=== PATIENT | female | born 1985 | race Caucasian/White ===

== ENCOUNTER 2019-06-10 05:21 | Inpatient (IN) | payer OTHER ==
[2019-06-10] MEDS ORDERED: Citric Acid/Sodium Citrate Solution 30 ML Cup PO ONE (05:27)
[2019-06-10] MEDS ORDERED: Sodium Chloride 0.9% 2.5 ML Syringe FLUSH PRN (05:27)
[2019-06-10] MEDS ORDERED: Sodium Chloride 0.9% 10 ML SDV IV PRN (05:27)
[2019-06-10] MEDS ORDERED: Oxytocin/0.9 % Sodium Chloride 30 UNIT/500 ML BAG IV SCH (05:30)
[2019-06-10] MEDS: Lactated Ringers 1,000 ML IV SCH ×3 (05:57→07:52)
[2019-06-10] MEDS ORDERED: Propofol 200 MG/20 ML SDV ONE (06:55)
[2019-06-10] MEDS ORDERED: Morphine PF 10 MG/10 ML SDV ONE (06:55)
--- NOTE | 2019-06-10 07:21 | PCM.PREANE ---
Preanesthetic Assessment - Anesthesia/Transfusion/Family Hx Anesthesia History: Prior Anesthesia Without Reaction Family History of Anesthesia Reaction: No Transfusion History: No Prior Transfusion(s) Intubation History: Unknown - Review of Systems General: No Symptoms Pulmonary: No Symptoms Cardiovascular: No Symptoms Gastrointestinal: No Symptoms Neurological: No Symptoms Other: Reports: None - Physical Assessment Height: 5 ft 9.5 in Weight: 106.141 kg ASA Class: 2 Mental Status: Alert & Oriented x3 Airway Class: Mallampati = 1 Dentition: Reports: Normal Dentition Thyro-Mental Finger Breadths: 3 Mouth Opening Finger Breadths: 3 ROM/Head Extension: Full Lungs: Clear to Auscultation, Normal Respiratory Effort Cardiovascular: Regular Rate, Regular Rhythm - Lab Values: Laboratory Last Values WBC 11.12 K/uL (4.0-11.0) H 06/10/19 06:00 RBC 4.44 M/uL (4.30-5.90) 06/10/19 06:00 Hgb 12.1 g/dL (12.0-16.0) 06/10/19 06:00 Hct 38.4 % (36.0-46.0) 06/10/19 06:00 MCV 86.5 fL (80.0-98.0) 06/10/19 06:00 MCH 27.3 pg (27.0-32.0) 06/10/19 06:00 MCHC 31.5 g/dL (31.0-37.0) 06/10/19 06:00 RDW Std Deviation 43.8 fl (28.0-62.0) 06/10/19 06:00 RDW Coeff of Renata 14 % (11.0-15.0) 06/10/19 06:00 Plt Count 189 K/uL (150-400) 06/10/19 06:00 MPV 10.70 fL (7.40-12.00) 06/10/19 06:00 Nucleated RBC % 0.0 /100WBC 06/10/19 06:00 Nucleated RBCs # 0 K/uL 06/10/19 06:00 Blood Type O POSITIVE 06/10/19 05:50 Antibody Screen NEGATIVE 06/10/19 05:50 - Allergies Allergies/Adverse Reactions: Allergies Allergy/AdvReac Type Severity Reaction Status Date / Time No Known Allergies Allergy Verified 06/05/19 08:34 - Blood Blood Available: No - Acknowledgements Anesthesia Type Planned: Spinal (general anesthesia back-up plan) Pt an Appropriate Candidate for the Planned Anesthesia: Yes Alternatives and Risks of Anesthesia Discussed w Pt/Guardian: Yes Pt/Guardian Understands and Agrees with Anesthesia Plan: Yes PreAnesthesia Questionnaire HEENT History: Reports: Other (See Below) Other HEENT History: wears glasses Cardiovascular History: Reports: None Respiratory History: Reports: Asthma Gastrointestinal History: Reports: Other (See Below) Other Gastrointestinal History: heartburn during Genitourinary History: Reports: None [employer] History: Reports: Polycystic Ovaries, Musculoskeletal History: Reports: None Neurological History: Reports: Other (See Below) Other Neuro History: migraines in the past Psychiatric History: Reports: Anxiety, PTSD Endocrine/Metabolic History: Reports: None Hematologic History: Reports: None Immunologic History: Reports: None Oncologic (Cancer) History: Reports: None Dermatologic History: Reports: None - Infectious Disease History Infectious Disease History: Reports: Chicken Pox - Past Surgical History Head Surgeries/Procedures: Reports: None HEENT Surgical History: Reports: Tonsillectomy Cardiovascular Surgical History: Reports: None Respiratory Surgical History: Reports: None GI Surgical History: Reports: None Female Surgical History: Reports: Section Endocrine Surgical History: Reports: None Neurological Surgical History: Reports: None Musculoskeletal Surgical History: Reports: None Oncologic Surgical History: Reports: None Dermatological Surgical History: Reports: None - SUBSTANCE USE Smoking Status *Q: Former Smoker Tobacco Use Within Last Twelve Months: No Second Hand Smoke Exposure: No Recreational Drug Use History: No - HOME MEDS Home Medications: Home Meds Albuterol Sulfate [Albuterol Sulfate Hfa] 1 - 2 inhalation INH ASDIRECTED PRN [History] Calcium Carbonate [Tums] 1 tab.chew CHEW ASDIRECTED PRN 06/05/19 [History] Fluticasone Furoate [Arnuity Ellipta] 1 inhalation INH DAILY 06/05/19 [History] Pnv No.95/Ferrous Fum/Folic AC [ Vitamin Tablet] 1 tab PO DAILY [History] - CURRENT (IN HOUSE) MEDS Current Meds: Current Medications Lactated Ringer's (Ringers, Lactated) 1,000 mls @ 500 mls/hr IV BOLUS [facility] Last Admin: 06/10/19 07:01 Dose: 999 mls/hr Oxytocin/Sodium Chloride (Oxytocin 30 Unit/500 Ml-Ns) 30 unit in 500 mls @ 250 mls/hr IV TITRATE [facility] Sodium Chloride (Saline Flush) 10 ml FLUSH ASDIRECTED PRN PRN Reason: Keep Vein Open Sodium Chloride (Saline Flush) 2.5 ml FLUSH ASDIRECTED PRN PRN Reason: Keep Vein Open Sodium Chloride (Normal Saline) 10 ml IV ASDIRECTED PRN PRN Reason: IV Use Discontinued Medications Citric Acid/Sodium Citrate (Bicitra Solution) 30 ml PO ONETIME ONE Stop: 06/10/19 05:28 Clindamycin Phosphate 900 mg/ (Premix) 50 mls @ 100 mls/hr IV ASDIRECTED ONE Stop: 06/10/19 05:56 Morphine Sulfate (Duramorph Pf) Confirm Administered Dose 10 mg .ROUTE .STK-MED ONE Stop: 06/10/19 06:56 Propofol (Diprivan 20 Ml) Confirm Administered Dose 200 mg .ROUTE .STK-MED ONE Stop: 06/10/19 06:56
[2019-06-10] MEDS: Clindamycin Phosphate in D5W 900 MG in Premix Bag 1 BAG IV ONE ×4 (07:55→10:50)
[2019-06-10] MEDS ORDERED: ceFAZolin 1 GM Vial ONE (08:00)
[2019-06-10] MEDS ORDERED: Ondansetron 4 MG/2 ML SDV ONE (08:01)
[2019-06-10] MEDS ORDERED: Oxytocin 10 Units/1 ML SDV ONE ×3 (08:26→08:41)
[2019-06-10] MEDS ORDERED: ePHEDrine 50 MG/ML SDV ONE (08:43)
[2019-06-10] MEDS ORDERED: Tranexamic Acid 1,000 MG in Sodium Chloride 0.9% 100 ML IV PRN (09:12)
[2019-06-10] MEDS ORDERED: Ibuprofen 800 MG Tab PO PRN (09:12)
[2019-06-10] MEDS ORDERED: Ondansetron 4 MG/2 ML SDV IVPUSH PRN ×2 (09:12→09:28)
[2019-06-10] MEDS ORDERED: Lanolin 100% Cream 7 GM Tube TOP PRN (09:12)
[2019-06-10] MEDS ORDERED: Methylergonovine 0.2 MG/1 ML Amp IM PRN (09:12)
[2019-06-10] MEDS ORDERED: Aluminum Hydroxide/Magnesium Hydroxide/Simethicone Susp 30 ML Cup PO PRN (09:12)
[2019-06-10] MEDS ORDERED: diphenhydrAMINE 50 MG/ML SDV IVPUSH PRN ×2 (09:12→09:28)
[2019-06-10] MEDS ORDERED: Misoprostol 200 MCG Tab RECTAL PRN (09:12)
[2019-06-10] MEDS ORDERED: Bisacodyl 10 MG Supp RECTAL PRN (09:12)
[2019-06-10] MEDS ORDERED: Oxytocin 10 Units/1 ML SDV IM PRN (09:12)
[2019-06-10] MEDS ORDERED: Lactated Ringers 1,000 ML IV SCH (09:15)
--- NOTE | 2019-06-10 09:20 | PCM.OPNOTE ---
- General Post-Op/Procedure Note Date of Surgery/Procedure: 06/10/19 Operative Procedure(s): Repeat LTCS Findings: Viable female APGARs 8, 9 weight 3240 gm. Intact placenta with 3V cord Pre Op Diagnosis: 39 week IUP. Previous LTCS, desires repeat Post-Op Diagnosis: Same Anesthesia Technique: Spinal Primary Surgeon: Nicole Nam Fluid Replacement, Intraop: 1,200 EBL in mLs: 600 Complications: none known Condition: Stable Free Text/Narrative:: Dictation [id number]
[2019-06-10] MEDS ORDERED: Naloxone 0.4 MG/ML Syringe IVPUSH PRN (09:28)
[2019-06-10] MEDS ORDERED: Nalbuphine 10 MG/1 ML Vial IVPUSH PRN (09:28)
[2019-06-10] MEDS ORDERED: Acetaminophen/oxyCODONE 325-5 MG Tab PO PRN (09:28)
[2019-06-10] MEDS ORDERED: fentaNYL 100 MCG/2 ML SDV IVPUSH PRN (09:28)
[2019-06-10] MEDS: Ketorolac 30 MG/ML SDV IVPUSH SCH ×3 (09:54→21:36)
[2019-06-10] MEDS: Sodium Chloride 0.9% 10 ML Syringe FLUSH PRN (09:58)
--- NOTE | 2019-06-10 10:41 | PCM.POSTAN ---
POST ANESTHESIA ASSESSMENT - MENTAL STATUS Mental Status: Alert - RESPIRATORY Respiratory Status: Respiratory Rate WNL, Airway Patent, O2 Saturation Stable - CARDIOVASCULAR CV Status: Pulse Rate WNL, Blood Pressure Stable - GASTROINTESTINAL GI Status: No Symptoms - PAIN Pain Score: 0 - POST OP HYDRATION Hydration Status: Adequate & Stable
[2019-06-10] MEDS: Simethicone 80 MG Tab.Chew PO SCH ×2 (12:22→18:11)
--- NOTE | 2019-06-10 16:42 | OR ---
SURGEON: Nicole Nam M.D. DATE OF PROCEDURE: 06/10/2019 PREOPERATIVE DIAGNOSES: 1. A 39-week intrauterine . 2. Previous section, desires repeat. POSTOPERATIVE DIAGNOSES: 1. A 39-week intrauterine . 2. Previous section, desires repeat. PROCEDURE: Repeat low transverse section. PRIMARY SURGEON: Nicole Nam MD. ANESTHESIA: Spinal. ESTIMATED BLOOD LOSS: 600 mL. FLUIDS: 1200 mL of crystalloid in the OR. FINDINGS: Viable female. scores 8 at one minute and 9 at five minutes. Weight of 3240 g. Intact placenta, 3-vessel cord. DISPOSITION: Infant to nursery, mom in PACU, stable. PROCEDURE DETAILS: Priscilla is a 33-year-old, G2, P1, at 39 weeks' gestational age who presents this morning for scheduled repeat delivery. Risks of procedure have been discussed with proper consent obtained. The patient was taken to the operating room where she underwent spinal anesthetic, was placed in dorsal supine position with leftward tilt. SCDs to lower extremities. Eid to gravity. Was prepped and draped in the usual sterile fashion. After being prepped and draped in usual sterile fashion, a time-out was performed. Anesthesia was tested, found to be adequate. Previous Pfannenstiel scar was now excised. Subcutaneous tissue was incised down to the level of rectus fascia which was incised in midline. The superior aspect of fascia was tented upward and dissected sharply and bluntly away from underlying muscles. In a similar aspect, this was performed at the inferior aspect of the fascia. Rectus muscle was in midline. Peritoneum was entered. Rectus muscle and peritoneum were now lateralized bluntly. Uterine position and position palpated. Self-retaining retractor now gently placed. Uterovesical reflection was visualized. Bladder flap was created sharply and bluntly. Bladder was mobilized away from lower uterine segment. Low transverse hysterotomy was performed. Uterine cavity was entered with blunt end of the scalpel. Amniotomy was performed, clear fluid was returned. The infant's head was flexed, delivered from the pelvis. Fundal pressure was applied. The infant's head was delivered followed by anterior shoulder, posterior shoulder, and remainder of the body without difficulty. The infant's oropharynx and nares were bulb suctioned. The had good tone, crying vigorously. After a delay, cord was clamped x2 and cut. The infant was handed off to attending nursery staff. Cord arterial, cord venous, cord blood sampling was obtained. The placenta was now delivered. Uterine cavity was cleared of all clot and debris, did appear to have an arcuate shape. Hysterotomy was repaired using 0 Vicryl in continuous running locked fashion followed by re-imbricating layer. Any areas of oozing along the serosa were cauterized. The posterior aspect of the uterus inspected, no defects or hematomas found be forming. Region was well irrigated, suction dried. Colonic gutters were cleared of all clot and debris, well irrigated, suction dried. Hysterotomy was again inspected, found to be hemostatic. Self-retaining retractor now gently removed. Bladder blade was placed. Hysterotomy once again inspected, found to be hemostatic. Rectus muscle and peritoneum were now reapproximated using 0 Vicryl in inverted mattress suture technique. Anterior aspect of the muscle and posterior aspect of the fascia were closely inspected. Any areas of oozing were cauterized. The rectus fascia was reapproximated using 0 Vicryl in continuous running fashion, beginning laterally on each side and meeting in the midline. Subcutaneous tissue was copiously irrigated. Any areas of oozing were cauterized. Skin edges reapproximated using 3-0 Vicryl on a Ryland needle in subcuticular fashion followed by half-inch Steri-Strips and Mastisol. Uterus remained firm below the U. Sponge and needle count was correct x2. The patient tolerated the procedure well overall. She will go to PACU in stable condition, infant to nursery. VIVIAN / BRAXTON /[id number]
[2019-06-10] MEDS: Docusate Sodium 100 MG Cap PO SCH (21:36)
[2019-06-11] MEDS: Simethicone 80 MG Tab.Chew PO SCH ×4 (00:05→21:22)
[2019-06-11] MEDS: Ketorolac 30 MG/ML SDV IVPUSH SCH ×2 (03:16→09:56)
--- NOTE | 2019-06-11 08:49 | PCM.PNPP ---
- General Info Date of Service: 06/11/19 Functional Status: Reports: Pain Controlled, Tolerating Diet, Ambulating - Review of Systems General: Reports: Fatigue. Denies: Fever, Weakness Pulmonary: Denies: Shortness of Breath Cardiovascular: Denies: Chest Pain, Palpitations, Lightheadedness Gastrointestinal: Denies: Abdominal Pain, Nausea, Vomiting Genitourinary: Denies: Flank Pain Musculoskeletal: Reports: No Symptoms Skin: Reports: No Symptoms Neurological: Reports: No Symptoms Psychiatric: Reports: No Symptoms - General Info Date of Service: 06/11/19 - Patient Data Vital Signs - Most Recent: Last Vital Signs Temp 36.6 C 06/11/19 06:00 Pulse 86 06/11/19 07:57 Resp 16 06/11/19 07:57 BP 106/51 L 06/11/19 06:00 Pulse Ox 98 06/11/19 07:57 Weight - Most Recent: 106.141 kg I&O - Last 24 Hours: Intake & Output 06/10/19 06/11/19 06/11/19 22:59 06:59 14:59 Output Total 1025 2800 Balance -1025 -2800 Lab Results - Last 24 Hours: Laboratory Results - last 24 hr 06/10/19 06/11/19 Range/Units 08:34 05:37 Hgb 9.7 L (12.0-16.0) g/dL Hct 30.2 L (36.0-46.0) % Cord ABG pH 7.326 (7.18-7.38) Cord ABG Base Excess -3 (-10--2) Cord VBG pH 7.354 (7.25-7.45) Cord VBG Base Excess -3 (-10--2) Med Orders - Current: Current Medications Al Hydroxide/Mg Hydroxide (Mag-Al Plus) 30 ml PO Q8H PRN PRN Reason: Heartburn Bisacodyl (Dulcolax) 10 mg RECTAL ONETIME PRN PRN Reason: Constipation Diphenhydramine HCl (Benadryl) 25 mg IVPUSH Q6H PRN PRN Reason: Itching or Nausea Diphenhydramine HCl (Benadryl) 25 mg IVPUSH Q4H PRN PRN Reason: Itching Stop: 06/11/19 09:28 Docusate Sodium (Colace) 100 mg PO BID [facility] Last Admin: 06/10/19 21:36 Dose: 100 mg Emollient Ointment (Lansinoh Hpa) 0 gm TOP ASDIRECTED PRN PRN Reason: Sore Nipples Fentanyl (Sublimaze) 50 mcg IVPUSH Q1H PRN PRN Reason: Pain (severe 7-10) Lactated Ringer's (Ringers, Lactated) 1,000 mls @ 500 mls/hr IV BOLUS [facility] Last Admin: 06/10/19 07:52 Dose: 999 mls/hr Oxytocin/Sodium Chloride (Oxytocin 30 Unit/500 Ml-Ns) 30 unit in 500 mls @ 250 mls/hr IV TITRATE [facility] Tranexamic Acid 1,000 mg/ (Sodium Chloride) 110 mls @ 660 mls/hr IV ONETIME PRN PRN Reason: Bleeding Lactated Ringer's (Ringers, Lactated) 1,000 mls @ 125 mls/hr IV ASDIRECTED [facility] Last Admin: 06/10/19 10:42 Dose: 125 mls/hr Ibuprofen (Motrin) 800 mg PO Q8H PRN PRN Reason: mild pain or fever Ketorolac Tromethamine (Toradol) 30 mg IVPUSH Q6H [facility] Stop: 06/11/19 09:16 Last Admin: 06/11/19 03:16 Dose: 30 mg Methylergonovine Maleate (Methergine) 0.2 mg IM ONETIME PRN PRN Reason: Excessive Vaginal Bleeding Misoprostol (Cytotec) 1,000 mcg RECTAL ONETIME PRN PRN Reason: excessive bleeding Nalbuphine HCl (Nubain) 5 mg IVPUSH ASDIRECTED PRN PRN Reason: Itching Naloxone HCl (Narcan) 0.1 mg IVPUSH ONETIME PRN PRN Reason: Respiratory Depression Stop: 06/11/19 09:28 Ondansetron HCl (Zofran) 4 mg IVPUSH Q4H PRN PRN Reason: Nausea/Vomiting Last Admin: 06/10/19 15:45 Dose: 4 mg Ondansetron HCl (Zofran) 4 mg IVPUSH Q6H PRN PRN Reason: Nausea Oxycodone/Acetaminophen (Percocet 325-5 Mg) 1 tab PO Q4H PRN PRN Reason: Pain (moderate 4-6) Oxycodone/Acetaminophen (Percocet 325-5 Mg) 2 tab PO Q4H PRN PRN Reason: Pain (moderate 4-6) Oxycodone/Acetaminophen (Percocet 325-5 Mg) 2 tab PO Q6H PRN PRN Reason: Pain (moderate 4-6) Oxytocin (Pitocin) 10 unit IM ASDIRECTED PRN PRN Reason: Excessive Vaginal Bleeding Simethicone (Simethicone) 160 mg PO QID [facility] Last Admin: 06/11/19 05:55 Dose: 160 mg Sodium Chloride (Saline Flush) 10 ml FLUSH ASDIRECTED PRN PRN Reason: Keep Vein Open Last Admin: 06/10/19 09:58 Dose: 10 ml Sodium Chloride (Saline Flush) 2.5 ml FLUSH ASDIRECTED PRN PRN Reason: Keep Vein Open Sodium Chloride (Normal Saline) 10 ml IV ASDIRECTED PRN PRN Reason: IV Use Discontinued Medications Cefazolin Sodium (Ancef) Confirm Administered Dose 2 gm .ROUTE .STK-MED ONE Stop: 06/10/19 08:01 Citric Acid/Sodium Citrate (Bicitra Solution) 30 ml PO ONETIME ONE Stop: 06/10/19 05:28 Last Admin: 06/10/19 10:51 Dose: Not Given Ephedrine Sulfate (Ephedrine Sulfate) Confirm Administered Dose 50 mg .ROUTE .STK-MED ONE Stop: 06/10/19 08:44 Clindamycin Phosphate 900 mg/ (Premix) 50 mls @ 100 mls/hr IV ASDIRECTED ONE Stop: 06/10/19 05:56 Last Admin: 06/10/19 10:50 Dose: Not Given Morphine Sulfate (Duramorph Pf) Confirm Administered Dose 10 mg .ROUTE .STK-MED ONE Stop: 06/10/19 06:56 Ondansetron HCl (Zofran) Confirm Administered Dose 4 mg .ROUTE .STK-MED ONE Stop: 06/10/19 08:02 Oxytocin (Pitocin) Confirm Administered Dose 10 unit .ROUTE .STK-MED ONE Stop: 06/10/19 08:27 Oxytocin (Pitocin) Confirm Administered Dose 10 unit .ROUTE .STK-MED ONE Stop: 06/10/19 08:27 Oxytocin (Pitocin) Confirm Administered Dose 20 unit .ROUTE .STK-MED ONE Stop: 06/10/19 08:42 Propofol (Diprivan 20 Ml) Confirm Administered Dose 200 mg .ROUTE .STK-MED ONE Stop: 06/10/19 06:56 - Infant Interaction Support Person: - Recovery Exam Fundal Tone: Firm Fundal Level: 1 Fingerbreadths Below Umbilicus Fundal Placement: Midline Lochia Amount: Scant Lochia Color: Rubra/Red Perineum Description: Intact, Minimal Bruising/Swelling Episiotomy/Laceration: None Bladder Status: Nonpalpable Urinary Elimination: Not Voiding - Exam General: Alert, Oriented Lungs: Normal Respiratory Effort Cardiovascular: Regular Rate, Regular Rhythm GI/Abdominal Exam: Normal Bowel Sounds, Soft Extremities: Pedal Edema (trace). No: Edith's Sign Skin: Warm, Dry, Intact Wound/Incisions: Healing Well, Dressing Dry and Intact Neurological: No New Focal Deficit - Problem List & Annotations (1) Status post repeat low transverse section SNOMED Code(s): 197667650, 18754598, 562698192, 941245113, 231867296 Code(s): Z98.891 - HISTORY OF UTERINE SCAR FROM PREVIOUS SURGERY Status: Acute Current Visit: Yes - Problem List Review Problem List Initiated/Reviewed/Updated: Yes - My Orders Last 24 Hours: My Active Orders 06/10/19 09:12 Patient Status [ADT] Routine Ambulate [RC] PER UNIT ROUTINE Antiembolic Devices [RC] PER UNIT ROUTINE Communication Order [RC] PER UNIT ROUTINE Communication Order [RC] PER UNIT ROUTINE Communication Order [RC] Per Unit Routine May Shower [RC] ASDIRECTED Notify Provider Intake and Out [RC] ASDIRECTED Notify Provider Vital Signs [RC] ASDIRECTED RT Incentive Spirometry [RC] Q2HWA Acetaminophen/oxyCODONE [Percocet 325-5 MG] 1 tab PO Q4H PRN Acetaminophen/oxyCODONE [Percocet 325-5 MG] 2 tab PO Q4H PRN Alum Hydrox/Mag Hydrox/Simeth [Mag-Al Plus] 30 ml PO Q8H PRN Ibuprofen [Motrin] 800 mg PO Q8H PRN Lanolin [Lansinoh HPA] See Dose Instructions TOP ASDIRECTED PRN Methylergonovine [Methergine] 0.2 mg IM ONETIME PRN Ondansetron [Zofran] 4 mg IVPUSH Q4H PRN Oxytocin [Pitocin] 10 unit IM ASDIRECTED PRN Tranexamic Acid [Cyklokapron] 1,000 mg Sodium Chloride 0.9% [Normal Saline] 100 ml IV ONETIME bisacodyL [Dulcolax] 10 mg RECTAL ONETIME PRN diphenhydrAMINE [Benadryl] 25 mg IVPUSH Q6H PRN miSOPROStoL [Cytotec] 1,000 mcg RECTAL ONETIME PRN Abdominal Binder [OM.PC] Routine Assess Lochia [WOMSER] Per Unit Routine Assess Uterine Involution [WOMSER] Per Unit Routine Breast Pump [WOMSER] Per Unit Routine Heat Therapy [OM.PC] Routine Ice Therapy [OM.PC] Routine Peripheral IV Discontinue [OM.PC] Routine Sequential Compression Device [OM.PC] Per Unit Routine 06/10/19 09:13 Cooling Warming Measures [RC] ASDIRECTED 06/10/19 09:15 Ketorolac [Toradol] 30 mg IVPUSH Q6H Lactated Ringers [Ringers, Lactated] 1,000 ml IV ASDIRECTED 06/10/19 12:00 Simethicone 160 mg PO QID 06/10/19 21:00 Docusate Sodium [Colace] 100 mg PO BID 06/10/19 Lunch Regular Diet [DIET] - Assessment Assessment:: POD 1 status post repeat LTCS - Plan Plan:: Continue postoperative cares, ambulate halls today and may shower. VS are reassuring, labs reviewed.
[2019-06-11] MEDS: Docusate Sodium 100 MG Cap PO SCH ×2 (09:55→20:53)
[2019-06-11] MEDS: Sodium Chloride 0.9% 10 ML Syringe FLUSH PRN (09:57)
[2019-06-11] MEDS ORDERED: Albuterol/Ipratropium 3.0-0.5 MG/3 ML Neb Soln NEB ONE (17:35)
[2019-06-11] MEDS: Acetaminophen/oxyCODONE 325-5 MG Tab PO PRN (20:52)
[2019-06-12] MEDS: Acetaminophen/oxyCODONE 325-5 MG Tab PO PRN ×3 (03:15→11:15)
--- NOTE | 2019-06-12 08:32 | PCM.PNPP ---
- General Info Date of Service: 06/12/19 Functional Status: Reports: Pain Controlled, Tolerating Diet, Ambulating, Urinating - Review of Systems General: Denies: Fever, Weakness, Fatigue Pulmonary: Denies: Shortness of Breath Cardiovascular: Denies: Chest Pain, Palpitations, Lightheadedness Gastrointestinal: Denies: Abdominal Pain, Nausea, Vomiting Genitourinary: Denies: Flank Pain Musculoskeletal: Reports: No Symptoms Skin: Reports: No Symptoms Neurological: Reports: No Symptoms Psychiatric: Reports: No Symptoms - General Info Date of Service: 06/12/19 - Patient Data Vital Signs - Most Recent: Last Vital Signs Temp 36.4 C 06/12/19 07:15 Pulse 82 06/12/19 07:15 Resp 18 06/12/19 07:15 BP 132/75 06/12/19 07:15 Pulse Ox 97 06/12/19 07:15 Weight - Most Recent: 106.141 kg Med Orders - Current: Current Medications Al Hydroxide/Mg Hydroxide (Mag-Al Plus) 30 ml PO Q8H PRN PRN Reason: Heartburn Bisacodyl (Dulcolax) 10 mg RECTAL ONETIME PRN PRN Reason: Constipation Diphenhydramine HCl (Benadryl) 25 mg IVPUSH Q6H PRN PRN Reason: Itching or Nausea Docusate Sodium (Colace) 100 mg PO BID [facility] Last Admin: 06/11/19 20:53 Dose: 100 mg Emollient Ointment (Lansinoh Hpa) 0 gm TOP ASDIRECTED PRN PRN Reason: Sore Nipples Fentanyl (Sublimaze) 50 mcg IVPUSH Q1H PRN PRN Reason: Pain (severe 7-10) Lactated Ringer's (Ringers, Lactated) 1,000 mls @ 500 mls/hr IV BOLUS [facility] Last Admin: 06/10/19 07:52 Dose: 999 mls/hr Oxytocin/Sodium Chloride (Oxytocin 30 Unit/500 Ml-Ns) 30 unit in 500 mls @ 250 mls/hr IV TITRATE [facility] Tranexamic Acid 1,000 mg/ (Sodium Chloride) 110 mls @ 660 mls/hr IV ONETIME PRN PRN Reason: Bleeding Lactated Ringer's (Ringers, Lactated) 1,000 mls @ 125 mls/hr IV ASDIRECTED [facility] Last Admin: 06/10/19 10:42 Dose: 125 mls/hr Ibuprofen (Motrin) 800 mg PO Q8H PRN PRN Reason: mild pain or fever Last Admin: 06/11/19 16:22 Dose: 800 mg Methylergonovine Maleate (Methergine) 0.2 mg IM ONETIME PRN PRN Reason: Excessive Vaginal Bleeding Misoprostol (Cytotec) 1,000 mcg RECTAL ONETIME PRN PRN Reason: excessive bleeding Nalbuphine HCl (Nubain) 5 mg IVPUSH ASDIRECTED PRN PRN Reason: Itching Ondansetron HCl (Zofran) 4 mg IVPUSH Q4H PRN PRN Reason: Nausea/Vomiting Last Admin: 06/10/19 15:45 Dose: 4 mg Ondansetron HCl (Zofran) 4 mg IVPUSH Q6H PRN PRN Reason: Nausea Oxycodone/Acetaminophen (Percocet 325-5 Mg) 1 tab PO Q4H PRN PRN Reason: Pain (moderate 4-6) Last Admin: 06/12/19 03:15 Dose: 1 tab Oxycodone/Acetaminophen (Percocet 325-5 Mg) 2 tab PO Q4H PRN PRN Reason: Pain (moderate 4-6) Last Admin: 06/12/19 07:19 Dose: 2 tab Oxycodone/Acetaminophen (Percocet 325-5 Mg) 2 tab PO Q6H PRN PRN Reason: Pain (moderate 4-6) Oxytocin (Pitocin) 10 unit IM ASDIRECTED PRN PRN Reason: Excessive Vaginal Bleeding Simethicone (Simethicone) 160 mg PO QID [facility] Last Admin: 06/11/19 21:22 Dose: Not Given Sodium Chloride (Saline Flush) 10 ml FLUSH ASDIRECTED PRN PRN Reason: Keep Vein Open Last Admin: 06/11/19 09:57 Dose: 10 ml Sodium Chloride (Saline Flush) 2.5 ml FLUSH ASDIRECTED PRN PRN Reason: Keep Vein Open Sodium Chloride (Normal Saline) 10 ml IV ASDIRECTED PRN PRN Reason: IV Use Discontinued Medications Albuterol/Ipratropium (Duoneb 3.0-0.5 Mg/3 Ml) 3 ml NEB ONETIME ONE Stop: 06/11/19 17:36 Last Admin: 06/11/19 17:49 Dose: 3 ml Cefazolin Sodium (Ancef) Confirm Administered Dose 2 gm .ROUTE .STK-MED ONE Stop: 06/10/19 08:01 Citric Acid/Sodium Citrate (Bicitra Solution) 30 ml PO ONETIME ONE Stop: 06/10/19 05:28 Last Admin: 06/10/19 10:51 Dose: Not Given Diphenhydramine HCl (Benadryl) 25 mg IVPUSH Q4H PRN PRN Reason: Itching Stop: 06/11/19 09:28 Ephedrine Sulfate (Ephedrine Sulfate) Confirm Administered Dose 50 mg .ROUTE .STK-MED ONE Stop: 06/10/19 08:44 Clindamycin Phosphate 900 mg/ (Premix) 50 mls @ 100 mls/hr IV ASDIRECTED ONE Stop: 06/10/19 05:56 Last Admin: 06/10/19 10:50 Dose: Not Given Ketorolac Tromethamine (Toradol) 30 mg IVPUSH Q6H [facility] Stop: 06/11/19 09:16 Last Admin: 06/11/19 09:56 Dose: 30 mg Morphine Sulfate (Duramorph Pf) Confirm Administered Dose 10 mg .ROUTE .STK-MED ONE Stop: 06/10/19 06:56 Naloxone HCl (Narcan) 0.1 mg IVPUSH ONETIME PRN PRN Reason: Respiratory Depression Stop: 06/11/19 09:28 Ondansetron HCl (Zofran) Confirm Administered Dose 4 mg .ROUTE .STK-MED ONE Stop: 06/10/19 08:02 Oxytocin (Pitocin) Confirm Administered Dose 10 unit .ROUTE .STK-MED ONE Stop: 06/10/19 08:27 Oxytocin (Pitocin) Confirm Administered Dose 10 unit .ROUTE .STK-MED ONE Stop: 06/10/19 08:27 Oxytocin (Pitocin) Confirm Administered Dose 20 unit .ROUTE .STK-MED ONE Stop: 06/10/19 08:42 Propofol (Diprivan 20 Ml) Confirm Administered Dose 200 mg .ROUTE .STK-MED ONE Stop: 06/10/19 06:56 - Infant Interaction Support Person: - Recovery Exam Fundal Tone: Firm Fundal Level: At Umbilicus Fundal Placement: Midline Lochia Amount: Scant Lochia Color: Rubra/Red Perineum Description: Intact, Minimal Bruising/Swelling Episiotomy/Laceration: None Bladder Status: Voiding Urinary Elimination: Voided - Exam General: Alert, Oriented Lungs: Clear to Auscultation, Normal Respiratory Effort Cardiovascular: Regular Rate, Regular Rhythm GI/Abdominal Exam: Normal Bowel Sounds, Soft Extremities: Pedal Edema (trace). No: Edith's Sign Skin: Warm, Dry, Intact Wound/Incisions: Healing Well, No Drainage. No: Erythema Neurological: No New Focal Deficit Psy/Mental Status: Alert, Normal Affect, Normal Mood - Problem List & Annotations (1) Status post repeat low transverse section SNOMED Code(s): 324362183, 91042225, 774700151, 830567053, 479726679 Code(s): Z98.891 - HISTORY OF UTERINE SCAR FROM PREVIOUS SURGERY Status: Acute Current Visit: Yes - Problem List Review Problem List Initiated/Reviewed/Updated: Yes - My Orders Last 24 Hours: My Active Orders 06/11/19 17:18 Consult to Respiratory Therapy [Respiratory Care Assess and Treatment] [CONS] Routine 06/11/19 17:35 RT Aerosol Therapy [RC] ASDIRECTED 06/12/19 08:29 Ready for Discharge [RC] PER UNIT ROUTINE - Assessment Assessment:: POD 2 status post repeat LTCS - Plan Plan:: Patient doing well overall. Alllow discharge to home today as long as baby discharged. Follow up at [facility] 2 and 6 weeks. Disharge instructions reviewed. Had a duoneb treatment last night and feels this helped her move air more easily. She has her inhaler. Advised mucinex as well. Advised continued use of IS.
[2019-06-12] MEDS: Docusate Sodium 100 MG Cap PO SCH (09:04)
== END 2019-06-12 11:45 | disposition home or self-care (01) | DRG 788 ==
LOC: MW.OB 05:21
PROVIDERS: ADMIT Obstetrics & Gynecology; ATTEND Obstetrics & Gynecology
PROC: 10D00Z1 Extraction of Products of Conception, Low, Open Approach (ICD-10-PCS; principal; 2019-06-10)
DX: O34.211 Maternal care for low transverse scar from previous cesarean delivery (principal); J45.909 Unspecified asthma, uncomplicated; O99.52 Diseases of the respiratory system complicating childbirth; Z79.899 Other long term (current) drug therapy; Z87.891 Personal history of nicotine dependence; Z90.89 Acquired absence of other organs; Z3A.39 39 weeks gestation of pregnancy; Z79.51 Long term (current) use of inhaled steroids; Z37.0 Single live birth
CPT/HCPCS: 36415; 51702; 59025; 82803; 85014; 85018; 85027; 86592; 86593; 86850; 86900; 86901; 94640; A9270-GY; J0690; J1885; J2270; J2405; J2590; J2704; J3490; J7120; J7620-GY

== ENCOUNTER 2019-06-14 21:11 | Emergency (ER) | payer OTHER ==
--- NOTE | 2019-06-14 21:18 | EDM.PDOC ---
ED HPI GENERAL MEDICAL PROBLEM - General Chief Complaint: Respiratory Problem Stated Complaint: POSSIBLE BRONCITUS Time Seen by Provider: 06/14/19 21:13 Source of Information: Reports: Patient History Limitations: Reports: No Limitations - History of Present Illness INITIAL COMMENTS - FREE TEXT/NARRATIVE: HISTORY AND PHYSICAL: History of present illness: Patient is a 33-year-old female who presents to the emergency room with complaints of cough and fever that started this evening. Patient is 4 days post , stating she had a normal delivery. 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 He had no complications or risks (denies any history of preeclampsia, DM, etc...). She states that tonight she had a fever of 101, she did take Tylenol prior to arrival. She is wanting to be evaluated for influenza and be treated if necessary. Concerned as she has a at home. History of asthma; states she has had a cough for about 1 week. States she received breathing treatments while in the before. She states this did help, she does not have nebulizer machine at home. Patient denies any headache, change in vision, syncope or near syncope. Denies any chest pain, back pain, shortness of breath or cough. Denies any abdominal pain, nausea, vomiting, diarrhea, constipation or dysuria. Has not noted any blood in urine or stool. Patient has been eating and drinking appropriately. Review of systems: As per history of present illness and below otherwise all systems reviewed and negative. Past medical history: As per history of present illness and as reviewed below otherwise noncontributory. Surgical history: As per history of present illness and as reviewed below otherwise noncontributory. Social history: See social history for further information Family history: As per history of present illness and as reviewed below otherwise noncontributory. Physical exam: General: Well-developed and well-nourished 33-year-old female. Alert and oriented. Nontoxic-appearing and in no acute distress. HEENT: Atraumatic, normocephalic, pupils equal and reactive bilaterally, negative for conjunctival pallor or scleral icterus, mucous membranes moist, TMs normal bilaterally, throat clear, neck supple, nontender, trachea midline. No drooling or trismus noted. No meningeal signs. No hot potato voice noted. Lungs: Faint expiratory wheezing noted to bilateral bases, breath sounds equal bilaterally, chest nontender. Heart: S1S2, regular rate and rhythm without overt murmur Abdomen: Soft, nondistended, nontender. Negative for masses or hepatosplenomegaly. Negative for costovertebral tenderness. Skin: Pfannenstiel incision noted without any fluctuance, erythema or wound dehiscence. Intact, warm, dry. No lesions or rashes noted. Extremities: Atraumatic, moves all extremities per self without difficulty or deficits, negative for cords or calf pain. Neurovascular unremarkable. Neuro: Awake, alert, oriented. Cranial nerves II through XII unremarkable. Cerebellum unremarkable. Motor and sensory unremarkable throughout. Exam nonfocal. Notes: Patient states that she did leave fairly abruptly to come to the emergency room for evaluation and does only want an influenza screening done at this time. We discussed lab work and chest x-ray which she declines. Patient's vital signs are stable. She denies any chest pain. Any lower extremity swelling/edema. We discussed postoperative risks and reviewed signs and symptoms that would prompt her to return to the emergency room. She does have a follow-up appointment with Dr. Nam next week. Supportive care measures were reviewed and discussed. Voices understanding and is agreeable to plan of care. Denies any further questions or concerns at this time. Diagnostics: Influenza Therapeutics: Duo Neb Prescription: Duo Neb Impression: Bronchitis Asthma exacerbation Plan: 1. Please use Tylenol and/or Ibuprofen as needed for pain and fever management. 2. Get plenty of Rest. Encourage fluids to prevent dehydration. 3. You can continue to use your home inhalers. Neb treatments every 4 hours as needed. 4. Please follow up with your primary care provider and/or OBGYN. Return to the ED as needed as discussed. Definitive disposition and diagnosis as appropriate pending reevaluation and review of above. - Related Data Allergies Allergy/AdvReac Type Severity Reaction Status Date / Time bupropion [From Wellbutrin] Allergy Rash Verified 06/14/19 21:48 cefaclor [From Ceclor] Allergy Rash Verified 06/14/19 21:48 Sulfa (Sulfonamide Allergy Rash Verified 06/14/19 21:48 Antibiotics) Home Meds: Home Meds Albuterol Sulfate [Albuterol Sulfate Hfa] 1 - 2 inhalation INH ASDIRECTED PRN [History] Calcium Carbonate [Tums] 1 tab.chew CHEW ASDIRECTED PRN 06/05/19 [History] Fluticasone Furoate [Arnuity Ellipta] 1 inhalation INH DAILY 06/05/19 [History] Pnv No.95/Ferrous Fum/Folic AC [ Vitamin Tablet] 1 tab PO DAILY [History] Past Medical History HEENT History: Reports: Other (See Below) Other HEENT History: wears glasses Cardiovascular History: Reports: None Respiratory History: Reports: Asthma Gastrointestinal History: Reports: Other (See Below) Other Gastrointestinal History: heartburn during Genitourinary History: Reports: None [employer] W[employer] CHIEF History: Reports: Polycystic Ovaries, Musculoskeletal History: Reports: None Neurological History: Reports: Other (See Below) Other Neuro History: migraines in the past Psychiatric History: Reports: Anxiety, PTSD Endocrine/Metabolic History: Reports: None Hematologic History: Reports: None Immunologic History: Reports: None Oncologic (Cancer) History: Reports: None Dermatologic History: Reports: None - Infectious Disease History Infectious Disease History: Reports: Chicken Pox - Past Surgical History Head Surgeries/Procedures: Reports: None HEENT Surgical History: Reports: Tonsillectomy Cardiovascular Surgical History: Reports: None Respiratory Surgical History: Reports: None GI Surgical History: Reports: None Female Surgical History: Reports: Section Endocrine Surgical History: Reports: None Neurological Surgical History: Reports: None Musculoskeletal Surgical History: Reports: None Oncologic Surgical History: Reports: None Dermatological Surgical History: Reports: None Social & Family History - Family History Family Medical History: Noncontributory - Caffeine Use Caffeine Use: Reports: None ED ROS GENERAL - Review of Systems Review Of Systems: Comprehensive ROS is negative, except as noted in HPI. ED EXAM, GENERAL - Physical Exam Exam: See Below (See dictation) Course - Vital Signs Last Recorded V/S: Last Vital Signs Temp 98.5 F 06/14/19 21:44 Pulse 100 06/14/19 21:44 Resp 18 06/14/19 21:44 BP 131/84 06/14/19 21:44 Pulse Ox 98 06/14/19 21:44 - Orders/Labs/Meds Orders: Active Orders 24 hr Category Date Time Status RT Aerosol Therapy [RC] ASDIRECTED Care 06/14/19 21:39 Active Isolation [COMM] Routine Oth 06/14/19 21:27 Active Meds: Medications Discontinued Medications Generic Name Dose Route Start Last Admin Trade Name Aurora PRN Reason Stop Dose Admin Albuterol/Ipratropium 3 ml 06/14/19 21:39 06/14/19 21:50 Duoneb 3.0-0.5 Mg/3 Ml NEB 06/14/19 21:40 3 ml ONETIME ONE Administration Departure - Departure Time of Disposition: 21:48 Disposition: Home, Self-Care 01 Clinical Impression: Bronchitis Asthma exacerbation Qualifiers: Asthma severity: mild Asthma persistence: intermittent Qualified Code(s): J45.21 - Mild intermittent asthma with (acute) exacerbation - Discharge Information Instructions: Upper Respiratory Infection, Adult, [id number] Referrals: Naren Vazquez MD [Primary Care Provider] - Forms: ED Department Discharge Additional Instructions: The following information is given to patients seen in the emergency department who are being discharged to home. This information is to outline your options for follow-up care. We provide all patients seen in our emergency department with a follow-up referral. The need for follow-up, as well as the timing and circumstances, are variable depending upon the specifics of your emergency department visit. If you don't have a primary care physician on staff, we will provide you with a referral. We always advise you to contact your personal physician following an emergency department visit to inform them of the circumstance of the visit and for follow-up with them and/or the need for any referrals to a consulting specialist. The emergency department will also refer you to a specialist when appropriate. This referral assures that you have the opportunity for follow-up care with a specialist. All of these measure are taken in an effort to provide you with optimal care, which includes your follow-up. Under all circumstances we always encourage you to contact your private physician who remains a resource for coordinating your care. When calling for follow-up care, please make the office aware that this follow-up is from your recent emergency room visit. If for any reason you are refused follow-up, please contact the [facility] Emergency Department at and asked to speak to the emergency department charge nurse. [facility] [address] [place] [id number] [facility] [address] [place] [address] 1. Please use Tylenol and/or Ibuprofen as needed for pain and fever management. 2. Get plenty of Rest. Encourage fluids to prevent dehydration. 3. You can continue to use your home inhalers. Neb treatments every 4 hours as needed. 4. Please follow up with your primary care provider and/or OBGYN. Return to the ED as needed as discussed. Sepsis Event Note - Focused Exam Vital Signs: Vital Signs Temp Pulse Resp BP Pulse Ox 06/14/19 21:44 98.5 F 100 18 131/84 98 Date Exam was Performed: 06/14/19 Time Exam was Performed: 21:54 - My Orders Last 24 Hours: My Active Orders 06/14/19 21:27 Isolation [COMM] Routine 06/14/19 21:39 RT Aerosol Therapy [RC] ASDIRECTED - Assessment/Plan Last 24 Hours: My Active Orders 06/14/19 21:27 Isolation [COMM] Routine 06/14/19 21:39 RT Aerosol Therapy [RC] ASDIRECTED
[2019-06-14] MEDS ORDERED: Albuterol/Ipratropium 3.0-0.5 MG/3 ML Neb Soln NEB ONE (21:39)
== END 2019-06-14 22:09 | disposition home or self-care (01) ==
LOC: MW.ED 21:11
DX: J45.21 Mild intermittent asthma with (acute) exacerbation (principal); Z88.1 Allergy status to other antibiotic agents; Z88.2 Allergy status to sulfonamides; Z88.8 Allergy status to other drugs, medicaments and biological substances
CPT/HCPCS: 87804; 99283; 99283-25; J7620-GY

== ENCOUNTER 2020-05-05 17:55 | Emergency (ER) | payer OTHER ==
--- NOTE | 2020-05-05 19:03 | EDM.PDOC ---
ED HPI GENERAL MEDICAL PROBLEM - General Chief Complaint: Respiratory Problem Stated Complaint: COVID POSITIVE Time Seen by Provider: 05/05/20 18:08 Source of Information: Reports: Patient History Limitations: Reports: No Limitations - History of Present Illness INITIAL COMMENTS - FREE TEXT/NARRATIVE: Patient presents requesting a chest x-ray. She states that she is on day 8 of a Covid diagnosis. She had minimal symptoms at the beginning and has had none in the last few days including: No shortness of breath, sore throat, headache, diarrhea, body aches. She has been eating and drinking well. Today, she developed a cough and "junky lungs". She went into the walk-in clinic today. They told her she needed a chest x-ray. She is lamas healthy without chronic medical problems. She has an [id number] at home. She is late on her menstrual cycle. - Related Data Allergies Allergy/AdvReac Type Severity Reaction Status Date / Time bupropion [From Wellbutrin] Allergy Rash Verified 05/05/20 18:10 cefaclor [From Ceclor] Allergy Rash Verified 05/05/20 18:10 Sulfa (Sulfonamide Allergy Rash Verified 05/05/20 18:10 Antibiotics) Home Meds: Home Meds Albuterol Sulfate [Albuterol Sulfate Hfa] 1 - 2 inhalation INH ASDIRECTED PRN 06/05/19 [History] Calcium Carbonate [Tums] 1 tab.chew CHEW ASDIRECTED PRN 06/05/19 [History] Budesonide [Pulmicort Flexhaler] 1 dose INH ASDIRECTED 05/05/20 [History] Codeine Phosphate/Guaifenesin [Guaifen-Codeine 100-10 mg/5 ml] 10 ml PO Q6HR PRN #240 liquid 05/05/20 [Rx] Montelukast [Singulair] 10 mg PO DAILY 05/05/20 [History] predniSONE [Prednisone] 2 tab PO DAILY #10 tablet 05/05/20 [Rx] Past Medical History HEENT History: Reports: Other (See Below) Other HEENT History: wears glasses Cardiovascular History: Reports: None Respiratory History: Reports: Asthma, Pneumonia, Recurrent Gastrointestinal History: Reports: Other (See Below) Other Gastrointestinal History: heartburn during Genitourinary History: Reports: None 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: Polycystic 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, Musculoskeletal History: Reports: None Neurological History: Reports: Other (See Below) Other Neuro History: migraines in the past Psychiatric History: Reports: Anxiety, PTSD Endocrine/Metabolic History: Reports: None Hematologic History: Reports: None Immunologic History: Reports: None Oncologic (Cancer) History: Reports: None Dermatologic History: Reports: None - Infectious Disease History Infectious Disease History: Reports: Chicken Pox - Past Surgical History Head Surgeries/Procedures: Reports: None HEENT Surgical History: Reports: Tonsillectomy Cardiovascular Surgical History: Reports: None Respiratory Surgical History: Reports: None GI Surgical History: Reports: None Female Surgical History: Reports: Section Endocrine Surgical History: Reports: None Neurological Surgical History: Reports: None Musculoskeletal Surgical History: Reports: None Oncologic Surgical History: Reports: None Dermatological Surgical History: Reports: None Social & Family History - Family History Family Medical History: No Pertinent Family History - Tobacco Use Tobacco Use Status *Q: Never Tobacco User - Caffeine Use Caffeine Use: Reports: Coffee - Recreational Drug Use Recreational Drug Use: No ED ROS GENERAL - Review of Systems Review Of Systems: Comprehensive ROS is negative, except as noted in HPI. ED EXAM, GENERAL - Physical Exam Exam: See Below Exam Limited By: No Limitations General Appearance: Alert, No Apparent Distress Ears: Normal External Exam, Normal TMs Nose: Normal Inspection Throat/Mouth: Normal Inspection Head: Atraumatic, Normocephalic Neck: Normal Inspection Respiratory/Chest: No Respiratory Distress, Normal Breath Sounds, Rhonchi (scattered), Wheezing (scattered) Cardiovascular: Normal Peripheral Pulses, Regular Rate, Rhythm GI/Abdominal: Soft Extremities: Normal Inspection Neurological: Alert, Oriented, Normal Cognition Psychiatric: Normal Affect, Normal Mood Skin Exam: Warm, Dry, Intact, Normal Color, No Rash Lymphatic: No Adenopathy Course - Vital Signs Last Recorded V/S: Last Vital Signs Temp 36.8 C 05/05/20 18:13 Pulse 87 05/05/20 19:44 Resp 16 05/05/20 19:44 BP 127/87 05/05/20 19:44 Pulse Ox 98 05/05/20 19:44 - Orders/Labs/Meds Labs: Laboratory Tests 05/05/20 05/05/20 Range/Units 18:19 18:59 Urine Color YELLOW Urine Appearance CLEAR Urine pH 6.0 (5.0-8.0) Ur Specific Green[place] >= 1.030 (1.001-1.035) Urine Protein NEGATIVE (NEGATIVE) mg/dL Urine Glucose (UA) NEGATIVE (NEGATIVE) mg/dL Urine Ketones NEGATIVE (NEGATIVE) mg/dL Urine Occult Blood NEGATIVE (NEGATIVE) Urine Nitrite NEGATIVE (NEGATIVE) Urine Bilirubin NEGATIVE (NEGATIVE) Urine Urobilinogen 0.2 (<2.0) EU/dL Ur Leukocyte Esterase NEGATIVE (NEGATIVE) Urine RBC 0-2 (0-2/HPF) Urine WBC 2-5 (0-5/HPF) Ur Epithelial Cells RARE (NONE-FEW) Urine Bacteria FEW (NEGATIVE) Urine HCG, Qual NEGATIVE (NEGATIVE) Departure - Departure Time of Disposition: 20:14 Disposition: Home, Self-Care 01 Condition: Good Clinical Impression: Bronchitis - Discharge Information Referrals: PCP,Fito [Primary Care Provider] - [facility] [Outside] [facility] [Outside] Forms: ED Department Discharge Additional Instructions: The following information is given to patients seen in the emergency department who are being discharged to home. This information is to outline your options for follow-up care. We provide all patients seen in our emergency department with a follow-up referral. The need for follow-up, as well as the timing and circumstances, are variable depending upon the specifics of your emergency department visit. If you don't have a primary care physician on staff, we will provide you with a referral. We always advise you to contact your personal physician following an emergency department visit to inform them of the circumstance of the visit and for follow-up with them and/or the need for any referrals to a consulting specialist. The emergency department will also refer you to a specialist when appropriate. This referral assures that you have the opportunity for follow-up care with a specialist. All of these measure are taken in an effort to provide you with o ptimal care, which includes your follow-up. Under all circumstances we always encourage you to contact your private physician who remains a resource for coordinating your care. When calling for follow-up care, please make the office aware that this follow-up is from your recent emergency room visit. If for any reason you are refused follow-up, please contact the [facility] Emergency Department at and asked to speak to the emergency department charge nurse. 1. Drink plenty of fluids and rest 2. [id number] mg 2 tabs daily for the next 3 to 5 days. 3. Cough syrup every 4-6 hours as needed for coughing and sleep. No driving or operating machinery Sepsis Event Note (ED) - Evaluation Sepsis Screening Result: No Definite Risk - Focused Exam Vital Signs: Vital Signs Temp Pulse Resp BP Pulse Ox 05/05/20 19:44 87 16 127/87 98 05/05/20 18:13 36.8 C 90 18 123/93 H 98
--- NOTE | 2020-05-05 19:48 | CR ---
HISTORY: Chest pain. Productive cough. COVID positive. Shortness of breath. COMPARISON: None available FINDINGS: A portable erect AP view of the chest was obtained at 1926 hours. The lungs are clear. No focal or diffuse infiltrates are present. The heart is normal in size. The mediastinum is normal in appearance. The osseous structures are normal in appearance for the patient`s age. IMPRESSION: Normal portable chest single view. Dictated by Issa Cotton MD @ May 05 2020 7:47PM Signed by Dr. Issa Cotton @ May 05 2020 7:48PM
== END 2020-05-05 20:30 | disposition home or self-care (01) ==
LOC: MW.ED 17:55
DX: J40 Bronchitis, not specified as acute or chronic (principal); Z88.8 Allergy status to other drugs, medicaments and biological substances; Z88.1 Allergy status to other antibiotic agents; Z88.2 Allergy status to sulfonamides; Z79.899 Other long term (current) drug therapy
CPT/HCPCS: 71045; 71045-26; 81001; 81025; 99283; 99283-25

== ENCOUNTER 2020-07-25 00:30 | Emergency (ER) | payer OTHER ==
[2020-07-25] MEDS ORDERED: Sodium Chloride 0.9% 10 ML Syringe FLUSH PRN (00:50)
[2020-07-25] MEDS ORDERED: Sodium Chloride 0.9% 2.5 ML Syringe FLUSH PRN (00:50)
[2020-07-25] MEDS ORDERED: Sodium Chloride 0.9% 1,000 ML IV SCH (01:00)
--- NOTE | 2020-07-25 01:23 | EDM.PDOC ---
ED HPI GENERAL MEDICAL PROBLEM - General Chief Complaint: Abdominal Pain Stated Complaint: LEFT ABDOMINAL PAIN Time Seen by Provider: 07/25/20 00:35 - History of Present Illness INITIAL COMMENTS - FREE TEXT/NARRATIVE: History of present illness: [] Vision developed pain in the left lower quadrant of the abdomen at 4 PM. She was driving from [place]. It gradually got worse and then he got so it came is horrible sharp pains in the left lower quadrant and a funny feeling of vibration in her vagina. He was associated with nausea that was intense and she almost vomited. She had an episode of mild pain in the same area a month or 2 ago while she was under care for chronic recurring UTI since March. The patient did not have any imaging at that time. She is now on a dose antibiotic and unsure which. That is because she has had 3 UTIs since March. Review of systems: As per history of present illness and below otherwise all systems reviewed and negative. Past medical history: As per history of present illness and as reviewed below otherwise noncontributory. Surgical history: As per history of present illness and as reviewed below otherwise noncontributory. Social history: No reported history of drug or alcohol abuse. Family history: As per history of present illness and as reviewed below otherwise noncontributory. Physical exam: Constitutional - well developed, well-nourished and in no acute distress HEENT - normocephalic, no evidence of trauma - external nose and mouth normal - no mass in neck and no JVD - mucosae moist EYES - full EOM, PERRL, no icterus - no evidence of inflammation, injection, or drainage Respiratory - no respiratory distress, equal bilateral expansion, lungs clear to auscultation and no abnormal lung sounds Cardiovascular - Regular Rhythm with S1 and S2 appreciated and no murmur, gallop or rub. GI - abdomen soft without distension or organomegaly - normal bowel sounds - no guard or rebound Musculoskeletal no gross deformity of long bones or joints - no tenderness, swelling or edema Neurologic - Alert and oriented times four - CN II-XII grossly intact - motor sensory and coordination symmetrically normal Psychiatric - appropriate mood and affect with normal thought content Hematologic - No petechiae or purpura - mucosa appropriate color and sclera not pale - normal nail bed color and refill Integument - no rash or evidence of trauma - normal turgor Diagnostics: [] Therapeutics: [] Impression: [] Plan: [] Definitive disposition and diagnosis as appropriate pending reevaluation and review of above. left lower quadrant Pain Score (Numeric/FACES): 8 - Related Data Allergies Allergy/AdvReac Type Severity Reaction Status Date / Time bupropion [From Wellbutrin] Allergy Rash Verified 07/25/20 00:41 cefaclor [From Ceclor] Allergy Rash Verified 07/25/20 00:41 Sulfa (Sulfonamide Allergy Rash Verified 07/25/20 00:41 Antibiotics) Home Meds: Home Meds Albuterol Sulfate [Albuterol Sulfate Hfa] 1 - 2 inhalation INH ASDIRECTED PRN 06/05/19 [History] Budesonide [Pulmicort Flexhaler] 1 dose INH ASDIRECTED 05/05/20 [History] Montelukast [Singulair] 10 mg PO DAILY 05/05/20 [History] Acetaminophen/HYDROcodone [[place] 325-10 MG] 1 tab PO Q6H PRN #10 tablet 07/25/20 [Rx] Non-Formulary Medication [NF Drug] 1 each PO DAILY 07/25/20 [History] Omeprazole 20 mg PO DAILY 07/25/20 [History] Ondansetron [Zofran ODT] 4 mg PO Q6H PRN #10 tab.dis 07/25/20 [Rx] Phentermine HCl 37.5 mg PO DAILY 07/25/20 [History] Tamsulosin [Flomax] 0.4 mg PO DAILY #10 cap.er 07/25/20 [Rx] Past Medical History HEENT History: Reports: Other (See Below) Other HEENT History: wears glasses Cardiovascular History: Reports: None Respiratory History: Reports: Asthma, Pneumonia, Recurrent Gastrointestinal History: Reports: Other (See Below) Other Gastrointestinal History: heartburn during Genitourinary History: Reports: None 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: Polycystic Ovaries, Musculoskeletal History: Reports: None Neurological History: Reports: Other (See Below) Other Neuro History: migraines in the past Psychiatric History: Reports: Anxiety, PTSD Endocrine/Metabolic History: Reports: None Hematologic History: Reports: None Immunologic History: Reports: None Oncologic (Cancer) History: Reports: None Dermatologic History: Reports: None - Infectious Disease History Infectious Disease History: Reports: Chicken Pox - Past Surgical History Head Surgeries/Procedures: Reports: None HEENT Surgical History: Reports: Tonsillectomy Cardiovascular Surgical History: Reports: None Respiratory Surgical History: Reports: None GI Surgical History: Reports: None Female Surgical History: Reports: Section Endocrine Surgical History: Reports: None Neurological Surgical History: Reports: None Musculoskeletal Surgical History: Reports: None Oncologic Surgical History: Reports: None Dermatological Surgical History: Reports: None Social & Family History - Family History Family Medical History: No Pertinent Family History - Tobacco Use Tobacco Use Status *Q: Never Tobacco User - Caffeine Use Caffeine Use: Reports: Coffee - Recreational Drug Use Recreational Drug Use: No ED ROS GENERAL - Review of Systems Review Of Systems: Comprehensive ROS is negative, except as noted in HPI. ED EXAM, GENERAL - Physical Exam Exam: See Below Free Text/Narrative:: My physical exam is in the HPI Course - Vital Signs Text/Narrative:: 0200 hrs. the patient feels better after ketorolac and ondansetron. The CT appears to me to show partially obstructing 6.6 mm stone in the left distal UVJ. Plan tamsulosin and pain and nausea control with increase fluid intake. Last Recorded V/S: Last Vital Signs Temp Pulse 80 07/25/20 00:43 Resp 20 07/25/20 00:43 BP 139/91 H 07/25/20 00:43 Pulse Ox 99 07/25/20 00:43 - Orders/Labs/Meds Orders: Active Orders 24 hr Category Date Time Status Abdomen Pelvis wo Cont [CT] Stat Exams 07/25/20 01:16 Taken Sodium Chloride 0.9% [Normal Saline] 1,000 ml Med 07/25/20 01:00 Active IV ASDIRECTED Sodium Chloride 0.9% [Saline Flush] Med 07/25/20 00:50 Active 10 ml FLUSH ASDIRECTED PRN Sodium Chloride 0.9% [Saline Flush] Med 07/25/20 00:50 Active 2.5 ml FLUSH ASDIRECTED PRN Saline Lock Insert [OM.PC] Stat Oth 07/25/20 00:50 Ordered Medication Orders Sodium Chloride (Normal Saline) 1,000 mls @ 999 mls/hr IV ASDIRECTED GAEL Last Admin: 07/25/20 00:57 Dose: 999 mls/hr Documented by: STEVEN Sodium Chloride (Sodium Chloride 0.9% 10 Ml Syringe) 10 ml FLUSH ASDIRECTED PRN PRN Reason: Keep Vein Open Last Admin: 07/25/20 00:57 Dose: 10 ml Documented by: STEVEN Sodium Chloride (Sodium Chloride 0.9% 2.5 Ml Syringe) 2.5 ml FLUSH ASDIRECTED PRN PRN Reason: Keep Vein Open Last Admin: 07/25/20 00:58 Dose: 2.5 ml Documented by: STEVEN Labs: Laboratory Tests 07/25/20 07/25/20 07/25/20 Range/Units 00:45 00:45 00:45 WBC 7.47 (4.0-11.0) K/uL RBC 4.94 (4.30-5.90) M/uL Hgb 14.0 (12.0-16.0) g/dL Hct 43.0 (36.0-46.0) % MCV 87.0 (80.0-98.0) fL MCH 28.3 (27.0-32.0) pg MCHC 32.6 (31.0-37.0) g/dL RDW Std Deviation 43.2 (28.0-62.0) fl RDW Coeff of Renata 14 (11.0-15.0) % Plt Count 258 (150-400) K/uL MPV 11.50 (7.40-12.00) fL Neut % (Auto) 59.2 (48.0-80.0) % Lymph % (Auto) 31.5 (16.0-40.0) % [place] % (Auto) 7.8 (0.0-15.0) % Eos % (Auto) 1.2 (0.0-7.0) % Baso % (Auto) 0.3 (0.0-1.5) % Neut # (Auto) 4.4 (1.4-5.7) K/uL Lymph # (Auto) 2.4 (0.6-2.4) K/uL [place] # (Auto) 0.6 (0.0-0.8) K/uL Eos # (Auto) 0.1 (0.0-0.7) K/uL Baso # (Auto) 0.0 (0.0-0.1) K/uL Sodium 142 (136-145) mmol/L Potassium 3.4 L (3.5-5.1) mmol/L Chloride 103 (98-107) mmol/L Carbon Dioxide 30.6 (21.0-32.0) mmol/L BUN 10 (7.0-18.0) mg/dL Creatinine 0.9 (0.6-1.0) mg/dL Est Cr Clr Drug Dosing 93.78 mL/min Estimated GFR (MDRD) > 60.0 ml/min Glucose 113 H (74-106) mg/dL Calcium 9.0 (8.5-10.1) mg/dL Total Bilirubin 0.4 (0.2-1.0) mg/dL AST 13 L (15-37) IU/L ALT 27 (14-63) IU/L Alkaline Phosphatase 73 (46-116) U/L Total Protein 7.9 (6.4-8.2) g/dL Albumin 3.9 (3.4-5.0) g/dL Globulin 4.0 (2.6-4.0) g/dL Albumin/Globulin Ratio 1.0 (0.9-1.6) Lipase 138 (73-393) U/L Urine Color YELLOW Urine Appearance SLT CLOUDY Urine pH 7.0 (5.0-8.0) Ur Specific [place] 1.025 (1.001-1.035) Urine Protein NEGATIVE (NEGATIVE) mg/dL Urine Glucose (UA) NEGATIVE (NEGATIVE) mg/dL Urine Ketones NEGATIVE (NEGATIVE) mg/dL Urine Occult Blood LARGE H (NEGATIVE) Urine Nitrite NEGATIVE (NEGATIVE) Urine Bilirubin NEGATIVE (NEGATIVE) Urine Urobilinogen 0.2 (<2.0) EU/dL Ur Leukocyte Esterase NEGATIVE (NEGATIVE) Urine RBC 55-60 (0-2/HPF) Urine WBC 0-1 (0-5/HPF) Ur Epithelial Cells RARE (NONE-FEW) Urine Bacteria RARE (NEGATIVE) Urine Mucus LIGHT (NONE-MOD) Urine HCG, Qual (NEGATIVE) 07/25/20 Range/Units 00:45 WBC (4.0-11.0) K/uL RBC (4.30-5.90) M/uL Hgb (12.0-16.0) g/dL Hct (36.0-46.0) % MCV (80.0-98.0) fL MCH (27.0-32.0) pg MCHC (31.0-37.0) g/dL RDW Std Deviation (28.0-62.0) fl RDW Coeff of Renata (11.0-15.0) % Plt Count (150-400) K/uL MPV (7.40-12.00) fL Neut % (Auto) (48.0-80.0) % Lymph % (Auto) (16.0-40.0) % [place] % (Auto) (0.0-15.0) % Eos % (Auto) (0.0-7.0) % Baso % (Auto) (0.0-1.5) % Neut # (Auto) (1.4-5.7) K/uL Lymph # (Auto) (0.6-2.4) K/uL [place] # (Auto) (0.0-0.8) K/uL Eos # (Auto) (0.0-0.7) K/uL Baso # (Auto) (0.0-0.1) K/uL Sodium (136-145) mmol/L Potassium (3.5-5.1) mmol/L Chloride (98-107) mmol/L Carbon Dioxide (21.0-32.0) mmol/L BUN (7.0-18.0) mg/dL Creatinine (0.6-1.0) mg/dL Est Cr Clr Drug Dosing mL/min Estimated GFR (MDRD) ml/min Glucose (74-106) mg/dL Calcium (8.5-10.1) mg/dL Total Bilirubin (0.2-1.0) mg/dL AST (15-37) IU/L ALT (14-63) IU/L Alkaline Phosphatase (46-116) U/L Total Protein (6.4-8.2) g/dL Albumin (3.4-5.0) g/dL Globulin (2.6-4.0) g/dL Albumin/Globulin Ratio (0.9-1.6) Lipase (73-393) U/L Urine Color Urine Appearance Urine pH (5.0-8.0) Ur Specific [place] (1.001-1.035) Urine Protein (NEGATIVE) mg/dL Urine Glucose (UA) (NEGATIVE) mg/dL Urine Ketones (NEGATIVE) mg/dL Urine Occult Blood (NEGATIVE) Urine Nitrite (NEGATIVE) Urine Bilirubin (NEGATIVE) Urine Urobilinogen (<2.0) EU/dL Ur Leukocyte Esterase (NEGATIVE) Urine RBC (0-2/HPF) Urine WBC (0-5/HPF) Ur Epithelial Cells (NONE-FEW) Urine Bacteria (NEGATIVE) Urine Mucus (NONE-MOD) Urine HCG, Qual NEGATIVE (NEGATIVE) Meds: Medications Generic Name Dose Route Start Last Admin Trade Name Geraq PRN Reason Stop Dose Admin Sodium Chloride 1,000 mls @ 999 mls/hr 07/25/20 01:00 07/25/20 00:57 Normal Saline IV 999 mls/hr ASDIRECTED GAEL Administration Sodium Chloride 10 ml 07/25/20 00:50 07/25/20 00:57 Sodium Chloride 0.9% 10 Ml Syringe FLUSH 10 ml ASDIRECTED PRN Administration Keep Vein Open Sodium Chloride 2.5 ml 07/25/20 00:50 07/25/20 00:58 Sodium Chloride 0.9% 2.5 Ml Syringe FLUSH 2.5 ml ASDIRECTED PRN Administration Keep Vein Open Discontinued Medications Generic Name Dose Route Start Last Admin Trade Name Geraq PRN Reason Stop Dose Admin Ketorolac Tromethamine 15 mg 07/25/20 01:25 07/25/20 01:29 Ketorolac 30 Mg/Ml Sdv IVPUSH 07/25/20 01:26 15 mg ONETIME ONE Administration Ondansetron HCl 4 mg 07/25/20 01:26 07/25/20 01:29 Ondansetron 4 Mg/2 Ml Sdv IVPUSH 07/25/20 01:27 4 mg ONETIME ONE Administration Tamsulosin HCl 0.4 mg 07/25/20 01:53 07/25/20 01:59 Tamsulosin 0.4 Mg Cap.Er PO 07/25/20 01:54 0.4 mg ONETIME ONE Administration Departure - Departure Time of Disposition: 02:11 Disposition: Home, Self-Care 01 Condition: Good Clinical Impression: Ureteral colic, Ureteral stone - Discharge Information Prescriptions: Tamsulosin [Flomax] 0.4 mg PO DAILY #10 cap.er Acetaminophen/HYDROcodone [[place] 325-10 MG] 1 tab PO Q6H PRN #10 tablet PRN Reason: Pain (Severe 7-10) Ondansetron [Zofran ODT] 4 mg PO Q6H PRN #10 tab.dis PRN Reason: Nausea/Vomiting Instructions: Renal Colic, [id number] Referrals: Dru Aragon MD [Primary Care Provider] - Forms: ED Department Discharge Additional Instructions: Urine. You should pass the stone. Return to ER if you have a high fever confusion weakness and severe pain. If the radiologist has any new findings I did not see on your CT will call you. Becomes unbearable last more than a few more days you should have a referral to urology or return here for referral to urology. The closest urologist available this week will be in [place]. [facility] [address] [place] [id number] [facility] [address] [place] [id number] The following information is given to patients seen in the emergency department who are being discharged to home. This information is to outline your options for follow-up care. We provide all patients seen in our emergency department with a follow-up referral. The need for follow-up, as well as the timing and circumstances, are variable depending upon the specifics of your emergency department visit. If you don't have a primary care physician on staff, we will provide you with a referral. We always advise you to contact your personal physician following an emergency department visit to inform them of the circumstance of the visit and for follow-up with them and/or the need for any referrals to a consulting specialist. The emergency department will also refer you to a specialist when appropriate. This referral assures that you have the opportunity for follow-up care with a specialist. All of these measure are taken in an effort to provide you with optimal care, which includes your follow-up. Under all circumstances we always encourage you to contact your private physician who remains a resource for coordinating your care. When calling for follow-up care, please make the office aware that this follow-up is from your recent emergency room visit. If for any reason you are refused follow-up, please contact the [facility] Emergency Department at and asked to speak to the emergency department charge nurse. Sepsis Event Note (ED) - Evaluation Sepsis Screening Result: No Definite Risk - Focused Exam Vital Signs: Vital Signs Pulse Resp BP Pulse Ox 07/25/20 00:43 80 20 139/91 H 99 - My Orders Last 24 Hours: My Active Orders 07/25/20 00:50 Sodium Chloride 0.9% [Saline Flush] 10 ml FLUSH ASDIRECTED PRN Sodium Chloride 0.9% [Saline Flush] 2.5 ml FLUSH ASDIRECTED PRN Saline Lock Insert [OM.PC] Stat 07/25/20 01:00 Sodium Chloride 0.9% [Normal Saline] 1,000 ml IV ASDIRECTED 07/25/20 01:16 Abdomen Pelvis wo Cont [CT] Stat - Assessment/Plan Last 24 Hours: My Active Orders 07/25/20 00:50 Sodium Chloride 0.9% [Saline Flush] 10 ml FLUSH ASDIRECTED PRN Sodium Chloride 0.9% [Saline Flush] 2.5 ml FLUSH ASDIRECTED PRN Saline Lock Insert [OM.PC] Stat 07/25/20 01:00 Sodium Chloride 0.9% [Normal Saline] 1,000 ml IV ASDIRECTED 07/25/20 01:16 Abdomen Pelvis wo Cont [CT] Stat
[2020-07-25] MEDS ORDERED: Ketorolac 30 MG/ML SDV IVPUSH ONE (01:25)
[2020-07-25] MEDS ORDERED: Ondansetron 4 MG/2 ML SDV IVPUSH ONE (01:26)
[2020-07-25] MEDS ORDERED: Tamsulosin 0.4 MG Cap.ER PO ONE (01:53)
[2020-07-25 02:00] LABS: BLOOD UREA NITROGEN,BUN 10 mg/dL (7.0-18.0); CARBON DIOXIDE,CO2 30.6 mmol/L (21.0-32.0); CHLORIDE,CL 103 mmol/L (98-107); GLUCOSE RANDOM 113 mg/dL (74-106); LIPASE 138 U/L (73-393); POTASSIUM,K 3.4 mmol/L (3.5-5.1); SODIUM,NA 142 mmol/L (136-145)
--- NOTE | 2020-07-25 02:12 | CT ---
INDICATION: Left flank pain TECHNIQUE: Axial images were obtained from the diaphragm to the pubic symphysis. Reformats were obtained in the coronal and sagittal plane. IV Contrast: None Oral Contrast: None COMPARISON: None. FINDINGS: Lower chest: Mild pectus excavatum deformity. Discoid atelectasis left lower lobe. Liver: Unremarkable. Normal in size and attenuation. No masses. Gallbladder and bile ducts: Unremarkable. No stones or inflammation. No biliary dilatation. Spleen: Unremarkable. Normal in size without mass. Pancreas: Unremarkable. No mass or inflammation. Adrenal glands: Unremarkable. No nodules. Kidneys: Nephrolithiasis with mild left hydronephrosis and obstructing left ureterovesicular junction stone measuring 7 x 4 millimeters. Vasculature: Unremarkable. GI tract: The stomach is unremarkable. No dilated loops of large or small intestine. Pelvis: Unremarkable. Bones: Unremarkable for age. IMPRESSION: Nephrolithiasis with mild left hydronephrosis and obstructing left ureterovesicular junction stone measuring 7 x 4 millimeters. Please note that all CT scans at this facility use dose modulation, iterative reconstruction, and/or weight-based dosing when appropriate to reduce radiation dose to as low as reasonably achievable. Dictated by Darius Perales MD @ 07/25/2020 2:09:[address] Darius Perales @ Jul 25 2020 2:09AM
== END 2020-07-25 02:29 | disposition home or self-care (01) ==
LOC: MW.ED 00:30
DX: N13.2 Hydronephrosis with renal and ureteral calculous obstruction (principal); N23 Unspecified renal colic; J45.909 Unspecified asthma, uncomplicated; Z79.899 Other long term (current) drug therapy; Z88.2 Allergy status to sulfonamides; Z88.8 Allergy status to other drugs, medicaments and biological substances; Z88.1 Allergy status to other antibiotic agents
CPT/HCPCS: 36415; 74176; 80053; 81001; 81025; 83690; 85025; 96374; 96375; 99284; A9270; J1885; J2405; J7030

== ENCOUNTER 2022-08-15 05:22 | Inpatient (IN) | payer BC ==
[2022-08-15] MEDS ORDERED: Citric Acid/Sodium Citrate Solution 30 ML Cup PO ONE (05:43)
[2022-08-15] MEDS ORDERED: Sodium Chloride 0.9% 10 ML Syringe FLUSH PRN (05:43)
[2022-08-15] MEDS ORDERED: Sodium Chloride 0.9% 2.5 ML Syringe FLUSH PRN (05:43)
[2022-08-15] MEDS ORDERED: Sodium Chloride 0.9% 20 ML SDV IV PRN (05:43)
[2022-08-15] MEDS ORDERED: Lactated Ringers 1,000 ML IV SCH ×2 (05:45→09:30)
[2022-08-15] MEDS ORDERED: Oxytocin/0.9 % Sodium Chloride 30 UNIT/500 ML BAG IV SCH (05:45)
[2022-08-15 06:46] LABS: HEMATOCRIT 32.9 % (36.0-46.0); HEMOGLOBIN 10.8 g/dL (12.0-16.0); MEAN CORPUSCULAR HEMOGLOBIN 27.6 pg (27.0-32.0); MEAN CORPUSCULAR HGB CONC 32.8 g/dL (31.0-37.0); MEAN CORPUSCULAR VOLUME 84.1 fL (80.0-98.0); MEAN PLATELET VOLUME 11.3 fL (7.40-12.00); RED BLOOD CELL COUNT 3.91 M/uL (4.30-5.90); WHITE BLOOD CELL COUNT,WBC 12.3 K/uL (4.0-11.0)
[2022-08-15] MEDS ORDERED: diphenhydrAMINE 50 MG/ML SDV IVPUSH PRN ×2 (07:21→09:21)
[2022-08-15] MEDS ORDERED: Acetaminophen/oxyCODONE 325-5 MG Tab PO PRN ×3 (07:21→09:21)
[2022-08-15] MEDS ORDERED: fentaNYL 100 MCG/2 ML SDV IVPUSH PRN (07:21)
[2022-08-15] MEDS ORDERED: Ondansetron 4 MG/2 ML SDV IVPUSH PRN ×2 (07:21→09:21)
[2022-08-15] MEDS ORDERED: ePHEDrine 50 MG/ML SDV IVPUSH PRN (07:21)
[2022-08-15] MEDS ORDERED: Dexmedetomidine 200 MCG/2 ML SDV ONE (07:24)
[2022-08-15] MEDS ORDERED: Water For Injection, Sterile 20 ML ONE (07:28)
[2022-08-15] MEDS ORDERED: Ondansetron 4 MG/2 ML SDV ONE (07:29)
[2022-08-15] MEDS ORDERED: Oxytocin 10 Units/1 ML SDV ONE (07:29)
[2022-08-15] MEDS ORDERED: Morphine PF 10 MG/10 ML SDV ONE (07:30)
[2022-08-15] MEDS ORDERED: ceFAZolin 2 GM Vial ONE (08:14)
[2022-08-15] MEDS ORDERED: Phenylephrine 1% 10 MG/ML SDV ONE (08:19)
[2022-08-15] MEDS ORDERED: Dexamethasone 4 MG/ML 5 ML MDV ONE (08:19)
[2022-08-15] MEDS ORDERED: Ropivacaine 0.5% 5 MG/ML 30 ML SDV ONE (08:33)
[2022-08-15] MEDS ORDERED: ePHEDrine 50 MG/ML SDV ONE (08:49)
[2022-08-15] MEDS ORDERED: Ibuprofen 800 MG Tab PO PRN (09:21)
[2022-08-15] MEDS ORDERED: Misoprostol 200 MCG Tab RECTAL PRN (09:21)
[2022-08-15] MEDS ORDERED: Methylergonovine 0.2 MG/1 ML Amp IM PRN (09:21)
[2022-08-15] MEDS ORDERED: Bisacodyl 10 MG Supp RECTAL PRN (09:21)
[2022-08-15] MEDS ORDERED: Lanolin 100% Cream 7 GM Tube TOP PRN (09:21)
[2022-08-15] MEDS ORDERED: Oxytocin 10 Units/1 ML SDV IM PRN (09:21)
[2022-08-15] MEDS ORDERED: Tranexamic Acid 1,000 MG in Sodium Chloride 0.9% 100 ML IV PRN (09:21)
[2022-08-15 09:27] LABS: PH,UMBILICAL ARTERIAL 7.213 (7.18-7.38)
[2022-08-15] MEDS ORDERED: Ketorolac 30 MG/ML SDV IVPUSH SCH (09:30)
[2022-08-15 09:31] LABS: PH,UMBILICAL VENOUS 7.273 (7.25-7.45)
[2022-08-15] MEDS: Ketorolac 30 MG/ML SDV IVPUSH SCH ×2 (13:19→19:46)
[2022-08-15] MEDS: Docusate Sodium 100 MG Cap PO SCH (20:06)
[2022-08-16] MEDS: Ketorolac 30 MG/ML SDV IVPUSH SCH ×2 (01:36→07:38)
[2022-08-16 06:31] LABS: HEMATOCRIT 26.1 % (36.0-46.0); HEMOGLOBIN 8.4 g/dL (12.0-16.0)
[2022-08-16] MEDS: Docusate Sodium 100 MG Cap PO SCH ×2 (08:11→22:31)
[2022-08-16] MEDS: Ibuprofen 800 MG Tab PO PRN ×2 (14:27→22:30)
[2022-08-17] MEDS: Docusate Sodium 100 MG Cap PO SCH (09:06)
[2022-08-17] MEDS: Ibuprofen 800 MG Tab PO PRN (09:06)
== END 2022-08-17 12:40 | disposition home or self-care (01) | DRG 540 ==
LOC: MW.OB 05:22
PROVIDERS: ADMIT Obstetrics & Gynecology; ATTEND Obstetrics & Gynecology
PROC: 10D00Z1 Extraction of Products of Conception, Low, Open Approach (ICD-10-PCS; principal; 2022-08-15)
DX: O34.211 Maternal care for low transverse scar from previous cesarean delivery (principal); O99.824 Streptococcus B carrier state complicating childbirth; O99.52 Diseases of the respiratory system complicating childbirth; J45.909 Unspecified asthma, uncomplicated; O69.81X0 Labor and delivery complicated by cord around neck, without compression, not applicable or unspecified; Z37.0 Single live birth; Z3A.39 39 weeks gestation of pregnancy; Z88.2 Allergy status to sulfonamides
CPT/HCPCS: 01961; 36415; 64488; 82803; 85014; 85018; 85027; 86592; 86850; 86900; 86901; A9270-GY; J0131; J0690; J1100; J1885; J2274; J2370; J2405; J2590; J2795; J3490; J7120

== ENCOUNTER 2022-08-21 14:26 | Emergency (ER) | payer BC | END 2022-08-21 18:27 | disposition home or self-care (01) | LOC: MW.ED 14:26 | DX: O87.0 Superficial thrombophlebitis in the puerperium (principal); I80.01 Phlebitis and thrombophlebitis of superficial vessels of right lower extremity; J45.909 Unspecified asthma, uncomplicated; Z98.890 Other specified postprocedural states; Z79.899 Other long term (current) drug therapy; Z88.8 Allergy status to other drugs, medicaments and biological substances; Z88.1 Allergy status to other antibiotic agents; Z88.2 Allergy status to sulfonamides | CPT/HCPCS: 93970; 93970-26; 99283 ==

== ENCOUNTER 2024-05-06 07:58 | Day surgery (SDC) | payer BC ==
[2024-05-06] MEDS: Sodium Chloride 0.9% 1,000 ML IV ONE ×2 (08:23→11:04)
[2024-05-06] MEDS: Ondansetron 4 MG/2 ML SDV IVPUSH ONE (08:24)
[2024-05-06] MEDS: Morphine 4 MG/ML Syringe IVPUSH ONE (08:25)
[2024-05-06 08:26] LABS: BASOPHILS ABSOLUTE AUTO 0.05 K/uL (0.00-0.20); BASOPHILS PERCENT AUTO 0.6 % (0.0-1.0); EOSINOPHILS ABSOLUTE AUTO 0.06 K/uL (0.00-0.45); EOSINOPHILS PERCENT AUTO 0.8 % (0.0-6.0); HEMATOCRIT 41.3 % (37.0-47.0); HEMOGLOBIN 14.2 g/dL (12.0-16.0); IMMATURE GRAN ABSOLUTE AUTO 0.01 K/uL (0.00-0.05); IMMATURE GRAN PERCENT AUTO 0.1 % (0.0-0.4); LYMPHOCYTES ABSOLUTE AUTO 1.91 K/uL (1.00-4.80); LYMPHOCYTES PERCENT AUTO 23.9 % (24.0-44.0); MEAN CORPUSCULAR HGB CONC 34.4 g/dL (32.0-36.0); MEAN CORPUSCULAR VOLUME 87.1 fL (83.0-99.0); MEAN PLATELET VOLUME 10.9 fL (9.4-12.3); MONOCYTES ABSOLUTE AUTO 0.36 K/uL (0.00-0.80); MONOCYTES PERCENT AUTO 4.5 % (0.0-8.0); NEUTROPHILS ABSOLUTE AUTO 5.61 K/uL (1.80-7.70); NEUTROPHILS PERCENT AUTO 70.1 % (41.0-71.0); PLATELET COUNT,PLT 223 K/uL (150-400); RED BLOOD CELL COUNT 4.74 M/uL (4.10-5.30)
[2024-05-06 08:42] LABS: APPEARANCE,URINE HAZY; COLOR,URINE YELLOW; GLUCOSE,URINE NEGATIVE (NEGATIVE); KETONES,URINE 40 mg/dL (NEGATIVE); PH,URINE 7.5 (5.0-8.0); PROTEIN,URINE TRACE mg/dL (NEGATIVE)
[2024-05-06 08:43] LABS: BILIRUBIN,URINE NEGATIVE (NEGATIVE); LEUKOCYTE ESTERASE,URINE NEGATIVE (NEGATIVE); NITRITE,URINE NEGATIVE (NEGATIVE); OCCULT BLOOD,URINE NEGATIVE (NEGATIVE); UROBILINOGEN,URINE 0.2 EU/dL (<2.0)
[2024-05-06 08:44] LABS: BACTERIA,URINE FEW (NEGATIVE); EPITHELIAL CELLS,URINE RARE (NONE-FEW); MUCUS,URINE FEW (NONE-MOD); RBC,URINE 0-1 (0-2/HPF); WBC,URINE 0-3 (0-5/HPF)
[2024-05-06 08:47] LABS: A/G RATIO 1.2 (0.9-1.6); ALBUMIN 4.2 g/dL (3.4-5.0); BILIRUBIN TOTAL 0.9 mg/dL (0.2-1.0); CALCIUM 9.1 mg/dL (8.5-10.1); CARBON DIOXIDE,CO2 25.9 mmol/L (21.0-32.0); CREATININE 0.8 mg/dL (0.6-1.0); EST CRCL DRUG DOSING (CG) 105.13 mL/min; POTASSIUM,K 3.4 mmol/L (3.5-5.1); PROTEIN TOTAL,TP 7.6 g/dL (6.4-8.2)
[2024-05-06] MEDS: HYDROmorphone 1 MG/ML Syringe IVPUSH ONE ×2 (09:20→12:56)
[2024-05-06] MEDS: Clindamycin Phosphate in D5W 600 MG in Premix Bag 1 BAG IV ONE (11:41)
[2024-05-06] MEDS ORDERED: Ondansetron 4 MG/2 ML SDV ONE (12:54)
[2024-05-06] MEDS ORDERED: Propofol 200 MG/20 ML SDV ONE (12:54)
[2024-05-06] MEDS ORDERED: Dexamethasone 4 MG/ML 5 ML MDV ONE (12:54)
[2024-05-06] MEDS ORDERED: Midazolam 1 MG/ML 2 ML SDV ONE (12:54)
[2024-05-06] MEDS ORDERED: Rocuronium 100 MG/10 ML MDV ONE (12:54)
[2024-05-06] MEDS ORDERED: Lidocaine 1% 5 ML VIAL ONE (12:54)
[2024-05-06] MEDS ORDERED: fentaNYL 100 MCG/2 ML SDV ONE (12:54)
[2024-05-06] MEDS ORDERED: Ropivacaine 0.5% 5 MG/ML 30 ML SDV ONE (13:02)
[2024-05-06] MEDS ORDERED: Bupivacaine 0.5% 30 ML SDV ONE (13:41)
[2024-05-06] MEDS ORDERED: Phenylephrine HCl In 0.9% NaCl 1 MG/10 ML Syringe ONE (14:01)
[2024-05-06] MEDS ORDERED: Sugammadex Sodium 200 MG/2 ML VIAL IV ONE (14:11)
[2024-05-06] MEDS ORDERED: Acetaminophen/oxyCODONE 325-5 MG Tab PO PRN (15:28)
[2024-05-06] MEDS ORDERED: HYDROmorphone 2 MG/ML Syringe IVPUSH PRN (15:28)
[2024-05-06] MEDS ORDERED: Ondansetron 4 MG/2 ML SDV IVPUSH PRN (15:28)
== END 2024-05-06 19:15 | disposition home or self-care (01) ==
LOC: MW.ED 07:58 → MW.MS 11:25 → MW.SDS 11:25
PROVIDERS: ATTEND Surgery
DX: K80.12 Calculus of gallbladder with acute and chronic cholecystitis without obstruction (principal); J45.909 Unspecified asthma, uncomplicated; F41.9 Anxiety disorder, unspecified; Z79.899 Other long term (current) drug therapy
CPT/HCPCS: 36415; 47562; 64488; 76705; 80053; 81001; 83690; 84703; 85025; 93971; 96361; 96365; 96375; 99285; J0131; J0665; J0736; J1100; J1171; J2250; J2270; J2371; J2405; J2704; J2795; J3010; J7030; 00790; 99284; J3490